=== PATIENT | male | born 1960 | race Caucasian/White ===

== ENCOUNTER 2017-01-02 15:58 | Outpatient (CLI) | payer MEDICARE, MEDICAID | END 2017-01-02 15:59 | disposition critical access hospital (66) | LOC: EMS 15:58 | PROVIDERS: ATTEND Surgery | DX: S01.01XA Laceration without foreign body of scalp, initial encounter (principal); R41.82 Altered mental status, unspecified; Y00.XXXA Assault by blunt object, initial encounter | CPT/HCPCS: A0425; A0429 ==

== ENCOUNTER 2017-01-02 16:17 | Emergency (ER) | payer MEDICARE, MEDICAID ==
[2017-01-02] MEDS ORDERED: LIDOCAINE 1%-EPI 1:100000 20 ML MDV SUBQ STA (16:21)
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
[2017-01-02] MEDS ORDERED: LIDOCAINE MPF 1%-EPI 1:200000 30 ML VIAL ONE (16:32)
--- NOTE | 2017-01-02 17:40 | XRAY Preliminary Report ---
Exam: XR Femur 2V RT IMPRESSION: Normal femur radiography. [facility] SITE ID: [id number]
--- NOTE | 2017-01-02 17:41 | CT Preliminary Report ---
Exam: CT Head W/O IMPRESSION: 1. Left sided scalp hematoma and laceration without fracture. 2. Negative for intracranial acute hemorrhage or mass effect. [facility] SITE ID: [id number]
[2017-01-02 17:42] VITALS: BP 141/73
--- NOTE | 2017-01-02 17:44 | CT Report ---
EXAM: CT HEAD EXAM DATE: 01/02/2017 05:14 PM. CLINICAL HISTORY: Head inj, etoh. COMPARISON: 07/25/2015. TECHNIQUE: Multiaxial CT images were obtained from the foramen magnum to the vertex. IV contrast: Non e. Reformats: Coronal. In accordance with CT protocol optimization, one or more of the following dose reduction techniques w ere utilized for this exam: automated exposure control, adjustment of mA and/or KV based on patient s ize, or use of iterative reconstructive technique. FINDINGS: Parenchyma: No intraparenchymal hemorrhage. No evidence of mass, midline shift, or CT findings of inf arction. Pimentel-white differentiation is distinct. Extraaxial Spaces: Normal for age. No subdural or epidural collections identified. Ventricles: Normal in size and position. Sinuses: Imaged paranasal sinuses, orbits, and mastoids show no significant abnormality. Bones: There is a left sided scalp hematoma with laceration. There are multiple skin corey. Other: None. IMPRESSION: 1. Left sided scalp hematoma and laceration without fracture. 2. Negative for intracranial acute hemorrhage or mass effect. [facility] Referring Provider Line: [phone] SITE ID: [id number]
--- NOTE | 2017-01-02 17:46 | CT Preliminary Report ---
Exam: CT Cervical Spine W/O IMPRESSION: 1. Multilevel degenerative disk and facet arthropathy, see above. 2. Normal prevertebral soft tissues. 3. No fracture. [facility] SITE ID: [id number]
--- NOTE | 2017-01-02 17:55 | CT Report ---
EXAM: CT CERVICAL SPINE WITHOUT CONTRAST DATE: 01/02/2017 05:15 p.m. HISTORY: Head injury, etoh. COMPARISONS: 07/25/2015. TECHNIQUE: Thin-section axial images were acquired of the cervical spine without contrast. Post-proce ssing: Coronal and sagittal reformats. Other: None. In accordance with CT protocol optimization, one or more of the following dose reduction techniques w ere utilized for this exam: automated exposure control, adjustment of mA and/or KV based on patient s ize, or use of iterative reconstructive technique. FINDINGS: Alignment: Normal. No scoliosis or spondylolisthesis. Bones: No fracture or bone lesion. Interspace Levels/Facets: C1-C2: Mild narrowing between the C1 arch and dens articulation. C2-C3: Unremarkable. C3-C4: Mild disk narrowing with prominent disk osteophyte complex anteriorly and posteriorly. No sign ificant foraminal stenosis. C4-C5: Mild disk narrowing. No significant foraminal stenosis. C5-C6: Moderate disk narrowing with prominent disk osteophyte complex and uncovertebral joint hypertr ophy results in mild bilateral foraminal stenosis. C6-C7: Mild disk narrowing with prominent disk osteophyte complex. Mild right foraminal stenosis. C7-T1: Unremarkable. Musculature: Normal. No fatty atrophy. Other: The paravertebral and prevertebral soft tissues are normal. The lung apices are clear. IMPRESSION: 1. Multilevel degenerative disk and facet arthropathy, see above. 2. Normal prevertebral soft tissues. 3. No fracture. [facility] Referring Provider Line: [phone] SITE ID: [id number]
--- NOTE | 2017-01-02 17:55 | XRAY Report ---
EXAM: RIGHT FEMUR RADIOGRAPHY EXAM DATE: 01/02/2017 05:33 p.m. CLINICAL HISTORY: Leg injury. COMPARISON: 01/11/2015. TECHNIQUE: 2 views. FINDINGS: Bones: Normal. No fracture or bone lesion. Joints: The visualized hip and knee joints are normal. No effusions. Soft Tissues: Normal. No soft tissue swelling. IMPRESSION: Normal femur radiography. [facility] Referring Provider Line: [phone] SITE ID: [id number]
[2017-01-02] MEDS ORDERED: HYDROcod/ACETAM 5/325 MG TABLET PO STA (17:56)
[2017-01-02] MEDS ORDERED: HYDROcod/ACETAM 5/325 MG TABLET ONE (18:02)
[2017-01-02] MEDS ORDERED: HYDROcod/ACET 5/325 Prepack 6 PO STA (18:19)
[2017-01-02] MEDS ORDERED: HYDROcod/ACET 5/325 Prepack 6 PO ONE (18:24)
== END 2017-01-02 18:32 | disposition home or self-care (01) ==
LOC: EDUNIT# → ED 16:17
DX: S01.01XA Laceration without foreign body of scalp, initial encounter (principal); S06.9X9A Unspecified intracranial injury with loss of consciousness of unspecified duration, initial encounter; Y00.XXXA Assault by blunt object, initial encounter; I10 Essential (primary) hypertension; G62.9 Polyneuropathy, unspecified; F17.200 Nicotine dependence, unspecified, uncomplicated
CPT/HCPCS: 12004; 70450; 72125; 73552; 99283; A9270

== ENCOUNTER 2018-10-07 08:38 | Day surgery (SDC) | payer MEDICARE, MEDICAID ==
[~2018-10-07 08:38] MED LIST: BUPIVACAINE 0.5% PF 10 ML VIAL ONE
[2018-10-07] MEDS ORDERED: CEFAZOLIN SODIUM IN 0.9 % NACL 2 GM/100 ML BAG IV ONE (08:39)
--- NOTE | 2018-10-07 09:02 | ANESTHESIA ---
Pre-Anesthesia VS, & Labs - Diagnosis umbilical hernia - Procedure umbilical hernia repair Vital Signs: Temp Pulse Resp BP Pulse Ox 36.6 C 78 18 174/113 H 98 10/07/18 08:48 10/07/18 08:48 10/07/18 08:48 10/07/18 08:48 10/07/18 08:48 Height 5 ft 9 in Body Mass Index 33.6 - NPO >8 hours Home Medications and Allergies Home Medications: Ambulatory Orders Metoprolol Tartrate 25 mg PO BID 10/03/18 Ibuprofen [Advil] 200 mg PO DAILY 10/07/18 Baclofen 10 mg PO BID 09/03/13 Sertraline [Zoloft] 50 mg PO DAILY 08/08/15 Metoprolol Tartrate 25 mg PO BID 10/03/18 Allergies/Adverse Reactions: Allergies Allergy/AdvReac Type Severity Reaction Status Date / Time Latex, Natural Rubber Allergy Rash Verified 10/03/18 14:10 Anes History & Medical History - Anesthetic History Anesthesia Complications: reports: No previous complications - Medical History Cardiovascular: reports: Hypertension, High cholesterol Pulmonary: reports: Sleep apnea (does not use cpap) Gastrointestinal: reports: GERD (controlled with diet) Urinary: reports: None Neuro: reports: None Musculoskeletal: reports: Osteoarthritis, Chronic back pain, Other Endocrine/Autoimmune: reports: None Blood Disorders: reports: None Skin: reports: None Smoking Status: Current every day smoker (1/2 pack per day x 30 years) Psychosocial: reports: Depression, Cannabis (Daily usage) - Surgical History General: Appendectomy Orthopedic: Spine surgery (back x3) Exam General: Alert, Oriented x3, Cooperative Dental: Poor dentition Mouth Openin Fingerbreadth Neck Mobility: Normal Mallampati classification: II Thyromental Distance: 4-6 cm Respiratory: Lungs clear, Normal breath sounds, No respiratory distress, No accessory muscle use Cardiovascular: Regular rate, Normal S1, Normal S2, No murmurs Mental/Cognitive Status: Alert/Oriented X3, Normal for patient Cognitive Status: Within normal limits Plan Anesthesia Type: General Consent for Procedure(s) Verified and Reviewed: Yes Code Status: Attempt Resuscitation ASA classification: 2-Mild systemic disease Is this case an emergency?: No
[2018-10-07] MEDS ORDERED: LACTATED RINGERS 1,000 ML IV ONE ×2 (09:26→10:49)
[2018-10-07] MEDS ORDERED: MIDAZOLAM 2 MG/2 ML VIAL ONE (09:38)
[2018-10-07] MEDS ORDERED: BUPIVACAINE 0.5% PF 30 ML VIAL INFIL ONE (09:51)
[2018-10-07] MEDS ORDERED: ONDANSETRON 4 MG/2 ML VIAL IVP PRN (10:19)
[2018-10-07] MEDS ORDERED: HYDROcod/ACETAM 5/325 MG TABLET PO PRN (10:19)
--- NOTE | 2018-10-07 10:26 | OPERATIVE REPORT ---
Operative Report - General Procedure Date: 10/07/18 Planned Procedure: Umbilical herniorrhaphy with mesh Pre-Op Diagnosis: Umbilical hernia Procedure Performed: Umbilical herniorrhaphy with mesh Post Op Diagnosis: Umbilical hernia - Procedure Note Primary Surgeon: Minh Rouse MD Anesthesia Provider: Jarett Peres CRNA Anesthesia Technique: General LMA, Local (30 mL of half percent Marcaine) IV Fluids (mL): 900 Estimated Blood Loss (mL): 5 Drain/Tube Type: Other (None.) Complications: None. - Other Other Information/Narrative: OPERATIVE DESCRIPTION/REPORT: After verbal and written informed consent was obtained detailing the risks of infection, bleeding requiring transfusion with its risks, nerve injury, and , and after I met with the patient confirming the surgery and the site of the surgery, the patient was brought to the operative suite and placed supine on the operating table. Great care was taken to avoid pressure points to prevent pressure necrosis or nerve injury. Monitoring devices were applied along with TEDs and pneumatic compressive stockings (to prevent DVT). The patient received preoperative antibiotics for surgical prophylaxis. Jarett Peres CRNA sedated and anesthetized the patient for the entire procedure. The patient was prepped and draped in the usual sterile manner. With the patient draped my initials were clearly visible. A "time in" then confirmed that the paitient was identified with 3 identifiers (name, birthdate and medical record number), the history and physical was in the chart, the signed consent confirming the procedure was in the chart, the patient was in the correct position, the aforementioned prophylactic measures were in place or given, we had the correct personnel and equipment to complete the procedure and that anesthesia, surgery and nursing were given an opportunuty to express any concerns. With the agreement of everyone in the room, we proceeded with the operation. A standard curvilinear umbilical incision was made and dissection was carried down to the hernia sac using a combination of Metzenbaum scissors and Bovie electrocautery. The sac was cleared of overlying adherent tissue, and the fascial defect was delineated. The fascia was cleared of any adherent tissue for a distance 1.5 cm from the defect. The sac was placed back into the abdomen. The defect was closed using a Ventralex ST hernia patch (Lot# [id number], ref# [id number], use by 2020-06-02). This was secured to the fascia using interrupted 0 PDS sutures superiorly and inferiorly utilizing the straps and trimming the excess strap. Laterally I placed a 0 PDS for additional support. The fascia was then closed over the mesh using 2 [id number] 0 PDS sutures incorporating the mesh. The skin, subcutaneous tissues, and the fascia were injected using half percent Marcaine for long-term anesthetic control. The patient was then given an ``innie by suturing the back of the umbilicus to the fascia using a 2-0 Vicryl. Meticulous hemostasis was obtained using Bovie electrocautery. The skin incision was approximated with a running subcuticular 4-0 Monocryl. After the prep was washed off, benzoin and steristrips were appl ied. A dressing was then applied. At this point a time out was performed that confirmed that all the counts were correct, the procedure that was performed, the blood loss, the IV fluids administered, and the patients condition. Having tolerated the procedure well, the patient was subsequently taken to recovery room in good and stable condition. Prezi disclaimer: This document was created in part using voice recognition technology. Because of the inherent limitations of the system ([employer]'s Prezi Dictate user manual states that the licensee understands that speech recognition is a statistical process and that recognition errors are inherent in the process), occasional same sounding word substitutions and grammatical errors do occur and persist despite proofreading. Please read this document for context.
[2018-10-07] MEDS: fentaNYL 100 MCG/2 ML VIAL ONE ×2 (10:39→10:47)
[2018-10-07] MEDS: HYDROmorphone 0.5 MG/0.5 ML SYRINGE IVP PRN ×2 (10:59→11:05)
[2018-10-07 11:38] VITALS: BP 152/85
[2018-10-07] MEDS ORDERED: HYDROcod/ACETAM 5/325 MG TABLET ONE (11:43)
[2018-10-08] MEDS ORDERED: KETOROLAC 30 MG/ML VIAL IVP ONE (09:56)
[2018-10-08] MEDS ORDERED: DEXAMETHASONE 4 MG/ML VIAL IVP ONE (09:56)
[2018-10-08] MEDS ORDERED: MIDAZOLAM 2 MG/2 ML VIAL IVP ONE (09:56)
[2018-10-08] MEDS ORDERED: PROPOFOL 200 MG/20 ML VIAL IVP ONE (09:56)
[2018-10-08] MEDS ORDERED: fentaNYL 100 MCG/2 ML VIAL IVP ONE (09:56)
[2018-10-08] MEDS ORDERED: ONDANSETRON 4 MG/2 ML VIAL IVP ONE (09:56)
== END 2018-10-07 08:39 | disposition home or self-care (01) ==
LOC: SDS 08:38
PROVIDERS: ATTEND Surgery
PROC: 0WUF0JZ Supplement Abdominal Wall with Synthetic Substitute, Open Approach (ICD-10-PCS; principal; 2018-10-07 09:45)
DX: K42.9 Umbilical hernia without obstruction or gangrene (principal); K92.1 Melena; I10 Essential (primary) hypertension; G47.30 Sleep apnea, unspecified; K21.9 Gastro-esophageal reflux disease without esophagitis; K44.9 Diaphragmatic hernia without obstruction or gangrene; F17.210 Nicotine dependence, cigarettes, uncomplicated; E66.9 Obesity, unspecified; F32.9 Major depressive disorder, single episode, unspecified; Z68.33 Body mass index [BMI] 33.0-33.9, adult
CPT/HCPCS: 49585; A9270; C1781; J0690; J1170; J7120

== ENCOUNTER 2018-10-20 07:14 | Outpatient (CLI) | payer MEDICARE, MEDICAID ==
[2018-10-20] MEDS ORDERED: IOVERSOL 320 100 ML VIAL IVP ONE ×2 (07:32→13:23)
[2018-10-20 07:54] LABS: CREATININE 0.7 mg/dL (0.6-1.2)
--- NOTE | 2018-10-20 09:21 | CT Report ---
Reason: PAIN AT UMBILICUS S/P UHR Procedure Date: 10/20/2018 Accession Number: [id number] / [id number] Procedure: CT - Abdomen/Pelvis W CPT Code: FULL RESULT: EXAM: CT ABDOMEN AND PELVIS EXAM DATE: 10/20/2018 08:45 AM. CLINICAL HISTORY: Umbilical pain status post umbilical hernia repair. COMPARISONS: ABDOMEN/PELVIS W/ 11/11/2014 6:09 PM. TECHNIQUE: Routine helical CT imaging was performed through the abdomen and pelvis. IV contrast: 100 mL Optiray 320. Enteric contrast: No. Reconstructions: Coronal and sagittal. In accordance with CT protocol optimization, one or more of the following dose reduction techniques were utilized for this exam: automated exposure control, adjustment of mA and/or KV based on patient size, or use of iterative reconstructive technique. FINDINGS: Lung Bases: Unremarkable. Liver: Geographically hypoattenuating in the right lobe of the liver, focal fatty infiltration, new compared to 2014. Gallbladder/Bile Ducts: Unremarkable. Spleen: Normal. Pancreas: Normal. Adrenal Glands: Normal. Kidneys: Normal. No masses or hydronephrosis. Peritoneal Cavity/Bowel: As seen on image 60 series 3 and image 41 series 6 there is ill-defined soft tissue density in the omental region immediately posterior to the repair of the umbilical wall defect with surrounding fat stranding and similar but less pronounced changes external to the abdominal wall aponeurosis, hourglass shape with waist at the level of the abdominal wall defect on axial view. There is no bowel obstruction, free fluid or free air. There is no lymphadenopathy by size criteria. Pelvic Organs: Normal. The bladder and visualized pelvic organs are within normal limits. Vasculature: Mild to moderate abdominal aortic atherosclerosis. Bones: Interval progression of degenerative changes with approximately 5 mm of retrolisthesis of L3 on L4. No aggressive osseous lesion. Other: None. IMPRESSION: Ill-defined soft tissue density and fat stranding in the configuration as described above are suggestive of incarceration of a small amount of fat through the abdominal wall defect. [facility]
== END 2018-10-20 07:15 | disposition home or self-care (01) ==
LOC: DI 07:14
PROVIDERS: ATTEND Surgery
DX: K42.9 Umbilical hernia without obstruction or gangrene (principal)
CPT/HCPCS: 36415; 74177; 82565

== ENCOUNTER 2018-10-20 13:22 | Day surgery (SDC) | payer MEDICARE, MEDICAID ==
[2018-10-20] MEDS ORDERED: LACTATED RINGERS 1,000 ML IV ONE ×2 (13:45→16:02)
--- NOTE | 2018-10-20 14:19 | ANESTHESIA ---
Pre-Anesthesia VS, & Labs <Minh Lagos Kennedi - Last Filed: 10/20/18 13:58> - NPO Last Fluid Intake: Drank 12oz of beer 1130 <JaMariposa - Last Filed: 10/20/18 15:01> - Diagnosis incarcerated umbilical hernia (DemondMinh Kolb) - Procedure umbilical hernia repair (Minh Lagos) Vital Signs: Temp Pulse Resp BP Pulse Ox 36.2 C L 90 16 132/91 H 97 10/20/18 13:46 10/20/18 13:46 10/20/18 13:46 10/20/18 13:46 10/20/18 13:46 Height 5 ft 9 in Weight (kg) 99 kg Body Mass Index 33.6 Home Medications and Allergies <Minh Lagos - Last Filed: 10/20/18 13:58> <Mariposa Peres - Last Filed: 10/20/18 15:01> Active Medications Cefazolin Sodium 3 gm/ Sodium (Chloride) 100 mls @ 200 mls/hr IV ONCE ELVA Stop: 10/20/18 16:00 Baclofen 10 mg PO BID 09/03/13 Sertraline [Zoloft] 50 mg PO DAILY 08/08/15 Metoprolol Tartrate 25 mg PO BID 10/03/18 Ibuprofen [Advil] 200 mg PO DAILY 10/07/18 Allergies/Adverse Reactions: Allergies Allergy/AdvReac Type Severity Reaction Status Date / Time Latex, Natural Rubber Allergy Rash Verified 10/03/18 14:10 Anes History & Medical History - Medical History Cardiovascular: reports: Hypertension, High cholesterol Pulmonary: reports: Sleep apnea (does not use cpap) Gastrointestinal: reports: GERD (controlled with diet) Urinary: reports: None Neuro: reports: None Musculoskeletal: reports: Osteoarthritis, Chronic back pain, Other Endocrine/Autoimmune: reports: None Blood Disorders: reports: None Skin: reports: None Smoking Status: Current every day smoker (1/2 pack per day x 30 years) - Surgical History General: Appendectomy Orthopedic: Spine surgery (back x3) <Minh Lagos - Last Filed: 10/20/18 13:58> - Anesthetic History Anesthesia Complications: reports: No previous complications <Mariposa Peres - Last Filed: 10/20/18 15:01> Exam General: Alert, Oriented x3, Cooperative, No acute distress Dental: Partials Upper, Poor dentition Mouth Openin Fingerbreadth Neck Mobility: Normal Mallampati classification: II Thyromental Distance: greater than 6 cm Respiratory: Lungs clear, Normal breath sounds, No respiratory distress, No accessory muscle use Cardiovascular: Regular rate, Normal S1, Normal S2, No murmurs Mental/Cognitive Status: Alert/Oriented X3, Normal for patient <Mariposa Peres - Last Filed: 10/20/18 15:01> Plan Anesthesia Type: General Consent for Procedure(s) Verified and Reviewed: Yes Code Status: Attempt Resuscitation ASA classification: 2-Mild systemic disease Is this case an emergency?: No <Mariposa Peres - Last Filed: 10/20/18 15:01>
[2018-10-20] MEDS ORDERED: ceFAZolin 3 GM in SODIUM CHLORIDE 0.9% 100ML 100 ML IV SCH (14:30)
[2018-10-20] MEDS ORDERED: BUPIVACAINE 0.5% PF 10 ML VIAL ONE (15:01)
[2018-10-20] MEDS ORDERED: HYDROmorphone 0.5 MG/0.5 ML SYRINGE ONE (15:05)
--- NOTE | 2018-10-20 15:29 | SURGERY HX AND PHYSICAL(T) ---
Surgical History & Physical - Chief Complaint/HPI Chief Complaint: Abdominal pain following umbilical herniorrhaphy with mesh History of Present Illness: This very pleasant 57-year-old male was seen yesterday in my office for persistent abdominal pain following an umbilical herniorrhaphy that I performed on October 07. Mesh was used and a sandwich technique was employed to place the mesh. The patient received postoperative pain medication and then when the pain did not subsist he received additional pain medication. I explained to him during yesterday's visit that having pain this far out was unusual and the answer was not to give him additional pain medication but rather to figure out t he cause of his pain. To this end I ordered a CT scan of the patient's abdomen which the patient had done today. The reading is that of an ill-defined soft tissue density in the omental region immediately posterior to the repair of the umbilical wall defect with surrounding fat stranding and a similar but less pronounced changes external to the abdominal wall aponeurosis hourglass shape with waist at the level of the abdominal wall defect and axial view. There is no bowel obstruction, no free fluid, no free air. There is no lymphadenopathy. The suggestion is of an incarceration of a small amount of fat through the abdominal wall defect. The patient was instructed of these findings and I have scheduled him for semiurgent operation to repair this. The patient was instructed to remain n.p.o. His last meal was at 1030 this morning. I explained to him that this would likely be a outpatient procedure with the patient going home thereafter. - PMH/PSH/Social Hx Does the pt have a hx of MRSA?: No Neurological History: None Eyes, Ears, Nose, Throat: None Cardiovascular: Hypertension, High cholesterol Respiratory: Sleep apnea (does not use cpap) Skin: None Endocrine/Autoimmune: None Gastrointestinal: GERD (controlled with diet) Urinary: None Musculoskeletal: Osteoarthritis, Chronic back pain, Other Blood Disorders: None Psychiatric: Depression, Anxiety, Panic attacks, Post traumatic stress disorder, Other General: Appendectomy Orthopedic: Spine surgery (back x3) Smoking Status: Current every day smoker (1/2 pack per day x 30 years) Does the pt drink ETOH?: Yes Frequency: Daily Does the pt have substance abuse?: Yes - Home Meds and Allergies Home Medications: Baclofen 10 mg PO BID 09/03/13 Sertraline [Zoloft] 50 mg PO DAILY 08/08/15 Metoprolol Tartrate 25 mg PO BID 10/03/18 Ibuprofen [Advil] 200 mg PO DAILY 10/07/18 Allergies/Adverse Reactions: Allergies Allergy/AdvReac Type Severity Reaction Status Date / Time Latex, Natural Rubber Allergy Rash Verified 10/03/18 14:10 - Review of Systems Constitutional: Other (I did not perform an extensive review of systems on this patient at this time as it is not pertinent to what were about to do.) - Vital Signs Heart Rate: 90 Blood Pressure: 132/91 Temperature: 36.2 C Respiratory Rate: 16 O2 Saturation: 97 Weight (kg): 99 kg Height: 1.75 m - Physical Exam General Appearance: positive: No acute distress Eyes Bilatera: positive: No lid inflammation, Conjunctivae nml, No scleral icterus ENT: positive: No signs of dehydration Neck: positive: Trachea midline Respiratory: positive: Chest non-tender, No respiratory distress, Breath sounds nml Cardiovascular: positive: Regular rate & rhythm Abdomen: positive: Nml bowel sounds, No distention, Other (Obese, no peritoneal findings. Minimal erythema under incision. No ecchymosis. No drainage.) Skin: positive: Color nml Extremities: positive: Non-tender, Full ROM, Nml appearance Neurologic/Psychiatric: positive: Oriented x3, Motor nml, Sensation nml, Mood/affect nml - Patient Review Patient Review: Problems were reviewed with the patient during this visit. Medications were reviewed with the patient during this visit. Allergies were reviewed this patient during this visit. Pertinent Tests Reviewed: All pertitent test for this patient were reviewed. - Assessment & Plan Assessment and Plan: Likely small incarcerated omental fat causing postoperative pain. The plan is to reoperate and see whether or not this can be fixed with a simple placement of a stitch. I explained to the patient that the mesh may need to be removed and a new piece of mesh placed. The indications, procedure, and possible complications including but not limited to bleeding with all of its risks including transfusion, infection, and were fully explained to the patient all questions were answered. Verbal and written consent was obtained. I explained the postoperatively the patient would need to "behave" so that this does not recur. He vocalized an understanding. The expectations that this procedure will be done as an outpatient procedure and he will be discharged home thereafter. I have asked him to let us know if there is any way we can make his stay here at [facility] more comfortable to please let us know. 45 minutes of [id number] time spent with the patient, the majority of which was spent in discussion, coordination of care, and completion of the requisite paperwork Cheleon disclaimer: This document was created in part using voice recognition technology. Because of the inherent limitations of the system ([employer]'s Dragon Dictate user manual states that the licensee understands that speech recognition is a statistical process and that recognition errors are inherent in the process), occasional same sounding word substitutions and grammatical errors do occur and persist despite proofreading. Please read this document for context.
[2018-10-20] MEDS ORDERED: SUGAMMADEX 200 MG/2 ML VIAL IVP ONE (17:23)
[2018-10-20] MEDS ORDERED: HYDROcod/ACETAM 5/325 MG TABLET PO PRN (17:51)
[2018-10-20] MEDS ORDERED: ONDANSETRON 4 MG/2 ML VIAL IVP PRN (17:51)
[2018-10-20] MEDS ORDERED: HYDROmorphone 0.5 MG/0.5 ML SYRINGE IVP PRN (17:51)
--- NOTE | 2018-10-20 18:00 | OPERATIVE REPORT ---
Operative Report - General Planned Procedure: Repair recurrent likely incarcerated umbilical hernia Pre-Op Diagnosis: Incarcerated incisional hernia at umbilicus Procedure Performed: Removal of mesh and primary closure of umbilical hernia Post Op Diagnosis: No evidence of incarceration, mesh already incorporated - Procedure Note Primary Surgeon: Minh Rouse MD Anesthesia Provider: Minh Lagos MD Anesthesia Technique: General ET tube, Local (30 mL of half percent Marcaine) IV Fluids (mL): 400 Estimated Blood Loss (mL): 25 Drain/Tube Type: Other (None.) Complications: None. - Other Other Information/Narrative: OPERATIVE DESCRIPTION/REPORT: After verbal and written informed consent was obtained detailing the risks of infection, bleeding requiring transfusion with its risks, nerve injury, and , and after I met with the patient confirming the surgery and the site of the surgery, the patient was brought to the operative suite and placed supine on the operating table. Great care was taken to avoid pressure points to prevent pressure necrosis or nerve injury. Monitoring devices were applied along with TEDs and pneumatic compressive stockings (to prevent DVT). The patient received preoperative antibiotics for surgical prophylaxis. [anesthesiologist] sedated and anesthetized the patient for the entire procedure. The patient was prepped and draped in the usual sterile manner. With the patient draped my initials were clearly visible. A "time in" then confirmed that the patient was identified with 3 identifiers (name, date and medical record number), the history and physical was in the chart, the signed consent confirming the procedure was in the chart, the patient was in the correct position, the aforementioned prophylactic measures were in place or given, we had the correct personnel and equipment to complete the procedure and that anesthesia, surgery and nursing were given an opportunity to express any concerns. With the agreement of everyone in the room, we proceeded with the operation. A curvilinear incision was made tracing the previous incision and dissection was carried down to the mesh using a combination of Metzenbaum scissors, scalpel, and mostly Bovie electrocautery. The mesh was excised using a combination of Metzenbaum scissors, Bovie electrocautery and mostly traction and counter- traction. The abdomen was examined as much as it could be through this relatively small incision and there was no bile, no purulence, and no blood noted. The bowel that could be seen was normal. The defect was then closed using 7 1 Prolene figure-8 sutures. The posterior aspect of the patient's umbilicus was sewn down to the fascia using a 2-0 Vicryl in order to give him a "innie." The skin, subcutaneous tissues, and fascia were then injected using 30 mL of half percent Marcaine for long-term anesthetic control. The subcutaneous tissues were copiously irrigated, and then closed using an interrupted 2-0 Vicryl. Meticulous hemostasis was obtained using Bovie electrocautery. The skin incision was approximated with a running 4-0 Monocryl. At this point a time out was performed that confirmed that all the counts were correct, the procedure that was performed, the blood loss, the IV fluids administered, and the patients condition. Having tolerated the procedure well, the patient was subsequently extubated and taken to recovery room in good and stable condition. Dragon disclaimer: This document was created in part using voice recognition technology. Because of the inherent limitations of the system ([employer]'s Dragon Dictate user manual states that the licensee understands that speech recognition is a statistical process and that recognition errors are inherent in the process), occasional same sounding word substitutions and grammatical errors do occur and persist despite proofreading. Please read this document for context.
[2018-10-20] MEDS ORDERED: PROPOFOL 200 MG/20 ML VIAL IVP ONE (18:02)
[2018-10-20] MEDS ORDERED: fentaNYL 100 MCG/2 ML VIAL IVP ONE (18:02)
[2018-10-20] MEDS ORDERED: ROCURONIUM 50 MG/5 ML VIAL IVP ONE (18:02)
[2018-10-20] MEDS ORDERED: KETOROLAC 30 MG/ML VIAL IVP ONE (18:02)
[2018-10-20] MEDS ORDERED: ACETAMINOPHEN 1,000 MG/100 ML 100 ML IV ONE (18:02)
[2018-10-20] MEDS ORDERED: LIDOCAINE-MPF 2% 5 ML VIAL IM ONE (18:02)
[2018-10-20] MEDS ORDERED: ONDANSETRON 4 MG/2 ML VIAL IVP ONE (18:02)
[2018-10-20] MEDS: HYDROmorphone 1 MG/ML CARPUJECT ONE ×2 (18:03→18:08)
[2018-10-20] MEDS ORDERED: MEPERIDINE 50 MG/ML VIAL ONE (18:19)
[2018-10-20] MEDS: MIDAZOLAM 2 MG/2 ML VIAL ONE ×2 (18:20→18:30)
[2018-10-20 19:39] VITALS: BP 138/93
== END 2018-10-20 19:45 | disposition home or self-care (01) ==
LOC: SDS 13:22 → MS2 18:47 → SDS 19:45
PROVIDERS: ATTEND Surgery
PROC: 0WQF0ZZ Repair Abdominal Wall, Open Approach (ICD-10-PCS; principal; 2018-10-20 14:30)
DX: K42.9 Umbilical hernia without obstruction or gangrene (principal); G47.30 Sleep apnea, unspecified; K21.9 Gastro-esophageal reflux disease without esophagitis; F17.210 Nicotine dependence, cigarettes, uncomplicated
CPT/HCPCS: 36415; 49585; 74177; 82565; J0131; J1170; J7120; Q9967

== ENCOUNTER 2018-11-02 | Emergency (ER) | payer MEDICARE, MEDICAID | END 2018-11-02 14:25 | disposition home or self-care (01) | DX: L76.34 Postprocedural seroma of skin and subcutaneous tissue following other procedure (principal); I10 Essential (primary) hypertension; F17.200 Nicotine dependence, unspecified, uncomplicated | CPT/HCPCS: 36415; 51798; 74177; 80053; 81003; 83690; 85025; 96361; 96374; 96376; 99284; A9270; J1170; Q9967; 81001; 87086 ==

== ENCOUNTER 2019-02-05 15:00 | Outpatient (CLI) | payer MEDICARE, MEDICAID | END 2019-02-05 15:01 | disposition critical access hospital (66) | LOC: EMS 15:00 | PROVIDERS: ATTEND Surgery | DX: R09.2 Respiratory arrest (principal) ==

== ENCOUNTER 2019-02-05 15:19 | Observation (INO) | payer MEDICARE, MEDICAID ==
[2019-02-05] MEDS ORDERED: SODIUM CHLORIDE 0.9% 1,000 ML IV ONE (15:25)
[2019-02-05] MEDS ORDERED: PROPOFOL 1000 MG/100 ML 100 ML IV STA (15:25)
--- NOTE | 2019-02-05 15:31 | ED Physician Documentation ---
PD HPI ALTERED MENTAL STATUS - Stated complaint Stated Complaint: INTUBATED - History obtained from History obtained from: Patient, EMS - History of Present Illness Timing - onset: Today (This is a 58-year-old gentleman who presents by ambulance for respiratory failure. The history is from EMS and the . Per the he has chronic pain, both headaches and back pain. For this his primary care physician refuses to prescribe him pain medication. Because of that he bought some sort of pain pill on the street today for $30. We do not know what it was, then he subsequently drink some alcohol, "because of the football game." Per the . Subsequent to that he collapsed in the yard, thought to be pulseless by bystanders and CPR was begun. When paramedics arrived he was unresponsive with a sat of 60%. He was intubated for airway protection and received etomidate, succinylcholine, and Vecuronium.) Review of Systems Unable to obtain: Intubated PD PAST MEDICAL HISTORY - Past Medical History Cardiovascular: Hypertension, High cholesterol Respiratory: Sleep apnea (does not use cpap) Neuro: None Endocrine/Autoimmune: None GI: GERD (controlled with diet) : None HEENT: None Psych: Depression, Anxiety, Panic attacks, Post traumatic stress disorder, Other Musculoskeletal: Osteoarthritis, Chronic back pain, Other Derm: None - Past Surgical History Past Surgical History: Yes General: Appendectomy Ortho: Spine surgery (back x3) - Present Medications Home Medications: Ambulatory Orders Medication Instructions Recorded Confirmed Baclofen 10 mg PO BID 09/03/13 10/07/18 Sertraline [Zoloft] 50 mg PO DAILY 08/08/15 10/07/18 Metoprolol Tartrate 25 mg PO BID 10/03/18 10/07/18 Docusate Sodium 250Mg Capsule 250 mg PO DAILY #10 capsule 10/07/18 [Colace 250Mg Capsule] HYDROcod/ACETAM 5/325 [Aurora 5/325] 1 each PO Q4H #20 tablet 10/07/18 Ibuprofen [Advil] 200 mg PO DAILY 10/07/18 10/07/18 Docusate Sodium 250Mg Capsule 250 mg PO DAILY #10 capsule 10/20/18 [Colace 250Mg Capsule] HYDROcod/ACETAM 5/325 [Aurora 5/325] 1 each PO Q4H #20 tablet 10/20/18 Docusate Sodium [Dss] 250 mg PO DAILY #15 capsule 11/02/18 Doxycycline Hyclate 100 mg PO BID #20 capsule 11/02/18 Naproxen 500 mg PO BID #20 tablet 11/02/18 Oxycodone HCl/Acetaminophen 1 each PO Q6H PRN #15 tablet 11/02/18 [Oxycodon-Acetaminophen 7.5-325] - Allergies Allergies/Adverse Reactions: Allergies Allergy/AdvReac Type Severity Reaction Status Date / Time Latex, Natural Rubber Allergy Rash Verified 11/02/18 09:58 - Social History Does the pt smoke?: Yes Smoking Status: Current every day smoker (1/2 pack per day x 30 years) Does the pt drink ETOH?: Yes Does the pt have substance abuse?: Yes - Immunizations Immunizations are current?: Yes Immunizations: TDAP current <10years - POLST Patient has POLST: No PD ED PE NORMAL - Vitals Vital signs reviewed: Yes - General General: Other (He is unresponsive, smells of alcohol, has pinpoint pupils and is intubated.) - HEENT HEENT: Other ([place] nonreactive pupils) - Neck Neck: Supple, no meningeal sign, No bony TTP - Cardiac Cardiac: RRR, No murmur - Respiratory Respiratory: No respiratory distress, Clear bilaterally - Abdomen Abdomen: Non tender - Neuro Eye Opening: None Motor: None Verbal: None GCS Score: 3 Results - Vitals Vitals: Vital Signs - 24 hr 02/05/19 02/05/19 02/05/19 15:17 15:34 15:43 Temperature 34.4 C L Heart Rate 109 H 87 99 Respiratory 18 16 24 Rate Blood Pressure 175/106 H 175/106 H O2 Saturation 100 100 99 02/05/19 02/05/19 15:58 16:51 Temperature Heart Rate 80 77 Respiratory 19 18 Rate Blood Pressure 215/110 H 227/119 H O2 Saturation 98 100 Oxygen O2 Source Mechanical ventilator - EKG (time done) 1623 Rate: Rate (enter#) (109) Rhythm: NSR [place]: LAD Intervals: Wide QRS (ICD with LAD) Ischemia: Non specific changes. No: ST elevation c/w ischemia Computer interpretation: Agree with computer - Labs Labs: Laboratory Tests 02/05/19 02/05/19 02/05/19 15:35 15:40 15:40 WBC 9.4 RBC 5.10 Hgb 15.4 Hct 46.7 MCV 91.6 MCH 30.2 MCHC 33.0 RDW 12.5 Plt Count 252 MPV 9.3 Neut # (Auto) 4.8 Lymph # (Auto) 3.6 H [place] # (Auto) 0.5 Eos # (Auto) 0.2 Baso # (Auto) 0.1 Absolute Nucleated RBC 0.00 Nucleated RBC % 0.0 PT 11.1 INR 1.0 Bld Gas Analysis Time Sample Site ABG pH ABG pCO2 ABG pO2 ABG HCO3 ABG Total CO2 ABG O2 Saturation ABG Base Excess Elijah Test VBG pH VBG pCO2 VBG pO2 VBG HCO3 VBG Total CO2 VBG O2 Saturation VBG Base Excess Respiration Rate O2 Delivery Device Vent Mode FiO2 Tidal Volume PEEP Pressure Support Vent Sodium Potassium Chloride Carbon Dioxide Anion Gap BUN Creatinine Estimated GFR (MDRD) Glucose Lactic Acid 4.8 H* Calcium Magnesium Total Bilirubin AST ALT Alkaline Phosphatase Total Creatine Kinase Total Protein Albumin Globulin Albumin/Globulin Ratio Lipase TSH Urine Color Urine Clarity Urine pH Ur Specific [place] Urine Protein Urine Glucose (UA) Urine Ketones Urine Occult Blood Urine Nitrite Urine Bilirubin Urine Urobilinogen Ur Leukocyte Esterase Urine RBC Urine WBC Ur Squamous Epith Cells Amorphous Sediment Urine Bacteria Urine Casts Ur Microscopic Review Urine Culture Comments Salicylates Urine Opiates Screen Ur Oxycodone Screen Urine Methadone Screen Ur Propoxyphene Screen Acetaminophen Ur Barbiturates Screen Ur Tricyclics Screen Ur Phencyclidine Scrn Ur Amphetamine Screen U Methamphetamines Scrn U Benzodiazepines Scrn Urine Cocaine Screen U Cannabinoids Screen Ethyl Alcohol 02/05/19 02/05/19 02/05/19 15:40 15:40 15:40 WBC RBC Hgb Hct MCV MCH MCHC RDW Plt Count MPV Neut # (Auto) Lymph # (Auto) [place] # (Auto) Eos # (Auto) Baso # (Auto) Absolute Nucleated RBC Nucleated RBC % PT INR Bld Gas Analysis Time Sample Site ABG pH ABG pCO2 ABG pO2 ABG HCO3 ABG Total CO2 ABG O2 Saturation ABG Base Excess Elijah Test VBG pH 7.182 L VBG pCO2 50.2 VBG pO2 102.1 H VBG HCO3 18.4 L VBG Total CO2 19.9 L VBG O2 Saturation 96.4 H VBG Base Excess -10.2 L Respiration Rate O2 Delivery Device Vent Mode FiO2 Tidal Volume PEEP Pressure Support Vent Sodium 138 Potassium 3.6 Chloride 105 Carbon Dioxide 19 L Anion Gap 14.0 H BUN 8 Creatinine 1.1 Estimated GFR (MDRD) 69 L Glucose 180 H Lactic Acid Calcium 8.5 Magnesium 2.3 Total Bilirubin 0.4 AST 55 H ALT 65 H Alkaline Phosphatase 96 Total Creatine Kinase 108 Total Protein 6.6 L Albumin 3.7 Globulin 2.9 Albumin/Globulin Ratio 1.3 Lipase 38 TSH 11.73 H Urine Color Urine Clarity Urine pH Ur Specific [place] Urine Protein Urine Glucose (UA) Urine Ketones Urine Occult Blood Urine Nitrite Urine Bilirubin Urine Urobilinogen Ur Leukocyte Esterase Urine RBC Urine WBC Ur Squamous Epith Cells Amorphous Sediment Urine Bacteria Urine Casts Ur Microscopic Review Urine Culture Comments Salicylates < 6.0 Urine Opiates Screen Ur Oxycodone Screen Urine Methadone Screen Ur Propoxyphene Screen Acetaminophen < 10 L Ur Barbiturates Screen Ur Tricyclics Screen Ur Phencyclidine Scrn Ur Amphetamine Screen U Methamphetamines Scrn U Benzodiazepines Scrn Urine Cocaine Screen U Cannabinoids Screen Ethyl Alcohol 51.3 02/05/19 02/05/19 15:40 16:12 WBC RBC Hgb Hct MCV MCH MCHC RDW Plt Count MPV Neut # (Auto) Lymph # (Auto) [place] # (Auto) Eos # (Auto) Baso # (Auto) Absolute Nucleated RBC Nucleated RBC % PT INR Bld Gas Analysis Time 1614 Sample Site LEFT RADIAL ABG pH 7.18 L* ABG pCO2 53 H ABG pO2 64 L ABG HCO3 19.2 L ABG Total CO2 20.8 L ABG O2 Saturation 88 L ABG Base Excess -9.6 L Elijah Test POSITIVE VBG pH VBG pCO2 VBG pO2 VBG HCO3 VBG Total CO2 VBG O2 Saturation VBG Base Excess Respiration Rate 16 O2 Delivery Device VENTILATOR Vent Mode SIMV FiO2 50.00 Tidal Volume 600 PEEP 5 Pressure Support Vent 10 Sodium Potassium Chloride Carbon Dioxide Anion Gap BUN Creatinine Estimated GFR (MDRD) Glucose Lactic Acid Calcium Magnesium Total Bilirubin AST ALT Alkaline Phosphatase Total Creatine Kinase Total Protein Albumin Globulin Albumin/Globulin Ratio Lipase TSH Urine Color LIGHT YELLOW Urine Clarity HAZY Urine pH 5.5 Ur Specific [place] 1.025 Urine Protein 100 H Urine Glucose (UA) 100 H Urine Ketones NEGATIVE Urine Occult Blood SMALL H Urine Nitrite NEGATIVE Urine Bilirubin NEGATIVE Urine Urobilinogen 0.2 (NORMAL) Ur Leukocyte Esterase NEGATIVE Urine RBC 0-5 Urine WBC 0-3 Ur Squamous Epith Cells NONE SEEN Amorphous Sediment Moderate Urine Bacteria Moderate H Urine Casts 3-5 Hyaline Casts Ur Microscopic Review INDICATED Urine Culture Comments INDICATED Salicylates Urine Opiates Screen NEGATIVE Ur Oxycodone Screen NEGATIVE Urine Methadone Screen NEGATIVE Ur Propoxyphene Screen NEGATIVE Acetaminophen Ur Barbiturates Screen NEGATIVE Ur Tricyclics Screen NEGATIVE Ur Phencyclidine Scrn NEGATIVE Ur Amphetamine Screen NEGATIVE U Methamphetamines Scrn NEGATIVE U Benzodiazepines Scrn NEGATIVE Urine Cocaine Screen NEGATIVE U Cannabinoids Screen POSITIVE H Ethyl Alcohol Procedures - Central Line Central Line Preparation: Unable to obtain consent ( not avilable then), Time out completed, Ultrasound used, Sterile prep and drape Central line location: Right IJ Central line type: Triple lumen (7F) Central line aftercare: Chlorhexidine disc placed, Secured, Placement confirmed, No pneumothorax, Bundle checklist complete PD MEDICAL DECISION MAKING - ED course ED course: 58-year-old gentleman presents after CPR after an apparent drug overdose. He is intubated and had been given vecuronium and etomidate in the field. Initially unresponsive. Poor IV access, only in IO in place on arrival and this was replaced with a central line. Vent was titrated to given blood gases. Noted at 1650 to be awake and following commands. Note that the propofol I had ordered at 1525 was never started, due to some sort of computer mixup but did not show up in the MAR for the nurse. That said the patient was following commands and spontaneous breathing trial was done. However he failed a spontaneous breathing trial, had a significant oxygen and support requirement so the propofol was begun and I spoke with the hospitalist for admission at 4:56 PM. - Critical Care Time(min): 45 Time Includes: Direct patient care, Review records, Reassess patient, Document care, Coordinate care, Medical consult, Family consult for tx dec Data interpretation: Pulse ox Procedures included in critical care time: Peripheral IV Procedures excluded from critical care time: Central IV, EKG Departure - Departure Disposition: 66 CAH DC/Xfer Clinical Impression: Respiratory failure Qualifiers: Chronicity: acute Respiratory failure complication: hypoxia and hypercapnia Qualified Code(s): J96.01 - Acute respiratory failure with hypoxia Drug overdose Qualifiers: Encounter type: initial encounter Injury intent: undetermined intent Qualified Code(s): T50.904A - Poisoning by unspecified drugs, medicaments and biological substances, undetermined, initial encounter Condition: Critical
[2019-02-05 15:45] LABS: MUDS CUTOFF CONCENTRATIONS CUTOFF CONC BELOW:
[2019-02-05 15:47] LABS: BILIRUBIN,URINE NEGATIVE (NEGATIVE); GLUCOSE, URINE (UA) 100 mg/dL (NEGATIVE); KETONES,URINE (UA) NEGATIVE (NEGATIVE); LEUKOCYTE ESTERASE, URINE NEGATIVE (NEGATIVE); NITRITE,URINE NEGATIVE (NEGATIVE); OCCULT BLOOD,URINE SMALL (NEGATIVE); PH,URINE 5.5 PH (5.0-7.5); PROTEIN,URINE 100 mg/dL (NEGATIVE); UROBILINOGEN,URINE 0.2 (NORMAL) E.U./dL (NORMAL); VBG BASE EXCESS -10.2 mmol/L (-2 - +2); VBG PCO2 50.2 mmHg (41-51); VBG PH 7.182 (7.31-7.41); VBG PO2 102.1 mmHg (25-47); VBG TOTAL CO2 19.9 mmol/L (24-29)
[2019-02-05 15:51] LABS: BASOPHILS # (AUTO) 0.1 10^3/uL (0.0-0.1); BASOPHILS % (AUTO) 0.7 %; EOSINOPHILS # (AUTO) 0.2 10^3/uL (0.0-0.7); EOSINOPHILS % (AUTO) 2.3 %; HGB - HEMOGLOBIN 15.4 g/dL (14.0-18.0); LYMPHOCYTES # (AUTO) 3.6 10^3/uL (1.5-3.5); LYMPHOCYTES % (AUTO) 38.3 %; MEAN CORPUSCULAR HEMOGLOBIN 30.2 pg (27.0-31.0); MEAN CORPUSCULAR VOLUME 91.6 fL (80.0-94.0); MEAN PLATELET VOLUME 9.3 fL (7.4-11.4); MONOCYTES # (AUTO) 0.5 10^3/uL (0.0-1.0); MONOCYTES % (AUTO) 5.3 %; NEUTROPHILS # (AUTO) 4.8 10^3/uL (1.5-6.6); NEUTROPHILS % (AUTO) 51.1 %; PLT - PLATELET COUNT 252 10^3/uL (130-450); RED CELL DISTRIBUTION WIDTH 12.5 % (12.0-15.0); WHITE BLOOD COUNT 9.4 x10^3/uL (4.8-10.8)
[2019-02-05 15:54] LABS: CLARITY,URINE HAZY (CLEAR); PT - PROTHROMBIN TIME 11.1 secs (9.9-12.6)
[2019-02-05] MEDS ORDERED: LACTATED RINGERS 1,000 ML IV STA (16:00)
[2019-02-05 16:04] LABS: BACTERIA,URINE Moderate /HPF (None Seen); RBC,URINE 0-5 /HPF (0-5); SQUAMOUS EPITHELIAL CELL,UR NONE SEEN (<= Few)
[2019-02-05 16:05] LABS: AMORPHOUS SEDIMENT,UR Moderate /LPF; AMPHETAMINE SCREEN,URINE NEGATIVE (NEGATIVE); BENZODIAZEPINES SCREEN, URINE NEGATIVE (NEGATIVE); CASTS, URINE 3-5 Hyaline Casts /LPF; COCAINE SCREEN URINE NEGATIVE (NEGATIVE); METHADONE SCREEN, URINE NEGATIVE (NEGATIVE); METHAMPHETAMINES SCREEN, URINE NEGATIVE (NEGATIVE); OPIATE SCREEN, URINE NEGATIVE (NEGATIVE); OXYCODONE SCREEN, URINE NEGATIVE (NEGATIVE); PROPOXYPHENE SCREEN, URINE NEGATIVE (NEGATIVE); TRICYCLIC ANTIDEPRESSANT,URINE NEGATIVE (NEGATIVE)
[2019-02-05 16:07] LABS: ACETAMINOPHEN < 10 ug/mL (10-30); ALBUMIN 3.7 g/dL (3.2-5.5); ALBUMIN/GLOBULIN RATIO 1.3 (1.0-2.2); ALKALINE PHOSPHATASE 96 IU/L (42-121); ALT ALANINE AMINOTRANSFERASE 65 IU/L (10-60); AST ASPARTATE AMINOTRANSFERASE 55 IU/L (10-42); BILIRUBIN,TOTAL 0.4 mg/dL (0.2-1.0); BUN - BLOOD UREA NITROGEN 8 mg/dL (6-20); CALCIUM 8.5 mg/dL (8.5-10.3); CARBON DIOXIDE - CO2 19 mmol/L (21-32); CHLORIDE 105 mmol/L (101-111); CK- CREATINE KINASE 108 IU/L (22-269); CREATININE 1.1 mg/dL (0.6-1.2); GFR - MDRD 69 (>89); GLUCOSE 180 mg/dL (70-100); LIPASE 38 U/L (22-51); MAGNESIUM 2.3 mg/dL (1.7-2.8); SALICYLATE < 6.0 mg/dL; SODIUM 138 mmol/L (135-145); TOTAL PROTEIN 6.6 g/dL (6.7-8.2)
--- NOTE | 2019-02-05 16:11 | XRAY Report ---
Reason: resp failure Procedure Date: 02/05/2019 Accession Number: [id number] / [id number] Procedure: XR - Chest 1 View X-Ray CPT Code: 57340 Final Report FULL RESULT: EXAM: CHEST RADIOGRAPHY EXAM DATE: 02/05/2019 03:36 PM. CLINICAL HISTORY: Respiratory failure. COMPARISON: CHEST 2 VIEW PA/LAT 10/11/2015 12:08 PM. TECHNIQUE: 1 view. FINDINGS: Lungs/Pleura: Mild central congestion seen. No theresa consolidation noted. There is hypoventilation. Mediastinum: Within exam limitations, the cardiomediastinal contour is normal. Other: Patient is intubated, with ET tube tip approximately 4.5 cm above the darrick. IMPRESSION: Mild central congestion, with ET tube tip 4.5 cm above the darrick. RADIA
[2019-02-05 16:17] LABS: ABG BASE EXCESS -9.6 mmol/L (-2.0-3.0); ABG HCO3 19.2 mmol/L (22.0-26.0); ABG OXYGEN SATURATION 88 % (94-98); ABG PCO2 53 mmHg (34-45); ABG PO2 64 mmHg (80-100); ABG TCO2 20.8 MMOL/L (21.0-29.0)
[2019-02-05 16:20] LABS: ABG PH 7.18 (7.35-7.45); ALLEN TEST POSITIVE
[2019-02-05] MEDS ORDERED: IOVERSOL 320 100 ML VIAL IVP ONE ×2 (16:24→16:47)
--- NOTE | 2019-02-05 16:34 | XRAY Report ---
Reason: RIJ central line Procedure Date: 02/05/2019 Accession Number: [id number] / [id number] Procedure: XR - Chest for Line Placement CPT Code: Final Report FULL RESULT: EXAM: CHEST RADIOGRAPHY EXAM DATE: 02/05/2019 04:00 PM. CLINICAL HISTORY: RIJ central line placement. COMPARISON: CHEST 1 VIEW 02/05/2019 3:18 PM. TECHNIQUE: 1 view. FINDINGS: Lines/Tubes: ET tube about 5.5 cm from the darrick. Right IJ line to the low SVC. Lungs/Pleura: Stable linear opacity at the medial right base, otherwise no focal opacities evident. No pleural effusion. No pneumothorax. Mediastinum: Within exam limitations, the cardiomediastinal contour is normal. Other: No fractures identified. IMPRESSION: Right IJ line to the low SVC with no visible pneumothorax or other interval change. RADIA
[2019-02-05] MEDS ORDERED: ONDANSETRON 4 MG/2 ML VIAL IVP PRN (17:00)
[2019-02-05] MEDS ORDERED: ONDANSETRON ODT 4 MG TABLET TL PRN (17:00)
--- NOTE | 2019-02-05 17:06 | CT Report ---
Reason: altered, poss trauma Procedure Date: 02/05/2019 Accession Number: [id number] / [id number] Procedure: CT - HEAD WO CPT Code: Final Report FULL RESULT: EXAM: CT HEAD EXAM DATE: 02/05/2019 04:41 PM. CLINICAL HISTORY: Altered mental status. Possible trauma. COMPARISON: HEAD W/O 01/02/2017 5:07 PM. TECHNIQUE: Multiaxial CT images were obtained from the foramen magnum to the vertex. Reformats: Sagittal and coronal. IV contrast: None. In accordance with CT protocol optimization, one or more of the following dose reduction techniques were utilized for this exam: automated exposure control, adjustment of mA and/or KV based on patient size, or use of iterative reconstructive technique. FINDINGS: Parenchyma: No intraparenchymal hemorrhage. No evidence of mass, midline shift, or CT findings of infarction. Pimentel-white differentiation is distinct. Extraaxial Spaces: Normal for age. No subdural or epidural collections identified. Ventricles: Normal in size and position. Sinuses and Orbits: Imaged paranasal sinuses, orbits, and mastoids show no significant abnormality. Bones: No evidence of fracture or calvarial defect. Other: None. IMPRESSION: Normal head CT. RADIA
--- NOTE | 2019-02-05 17:11 | CT Report ---
Reason: altered, poss trauma Procedure Date: 02/05/2019 Accession Number: [id number] / [id number] Procedure: CT - CERVICAL SPINE WO CPT Code: Final Report FULL RESULT: EXAM: CT CERVICAL SPINE WITHOUT CONTRAST DATE: 02/05/2019 04:41 PM. HISTORY: Altered mental status, possible trauma. Neck pain. COMPARISONS: CERVICAL SPINE W/O 01/02/2017 5:10 PM. TECHNIQUE: Thin-section axial images were acquired of the cervical spine without contrast. Post-processing: Coronal and sagittal reformats. Other: None. In accordance with CT protocol optimization, one or more of the following dose reduction techniques were utilized for this exam: automated exposure control, adjustment of mA and/or KV based on patient size, or use of iterative reconstructive technique. FINDINGS: Alignment: No scoliosis or spondylolisthesis. Bones: No fracture or bone lesion. Interspace Levels/Facets: Moderate multilevel osteoarthritic changes present. Musculature: Normal. No fatty atrophy. Other: The paravertebral and prevertebral soft tissues are unremarkable. The lung apices are clear. Patient is intubated. IMPRESSION: 1. Moderate multilevel osteoarthritic changes present without acute fracture. RADIA
[2019-02-05] MEDS: PROPOFOL 1000 MG/100 ML 100 ML IV SCH ×3 (17:15→22:54)
--- NOTE | 2019-02-05 17:15 | CT Report ---
Reason: aorta protocol, wide mediastinum Procedure Date: 02/05/2019 Accession Number: [id number] / [id number] Procedure: CT - ANGIO CHEST W/WO CPT Code: Final Report FULL RESULT: EXAM: CT ANGIOGRAM CHEST EXAM DATE: 02/05/2019 04:42 PM. CLINICAL HISTORY: Trauma, confusion. COMPARISON: CHEST 1 VIEW 02/05/2019 3:18 PM. TECHNIQUE: Routine helical imaging was performed through the chest in the pulmonary arterial phase. IV Contrast: OPTI 320 80ML. Reconstructions: Coronal 3-D MIP reconstructions.Sagittal and coronal. In accordance with CT protocol optimization, one or more of the following dose reduction techniques were utilized for this exam: automated exposure control, adjustment of mA and/or KV based on patient size, or use of iterative reconstructive technique. FINDINGS: Vascular: Noncontrast imaging demonstrates no evidence of acute intramural hematoma. There is no evidence of aortic dissection or aneurysm. Lungs/Pleura: There is atelectasis within the lung bases. There is a small right pleural effusion. No evidence of pulmonary contusion. No pneumothorax. Mediastinum: Normal. No cardiac enlargement or adenopathy. Upper Abdomen: There is hepatic steatosis. The visualized portions of the upper abdominal organs demonstrate no acute abnormalities. Other: None. IMPRESSION: 1. There is no evidence of aortic dissection or aneurysm. 2. There is a small right pleural effusion. 3. There is bibasilar atelectasis. 4. There is hepatic steatosis. RADIA
[2019-02-05] MEDS ORDERED: MIDAZOLAM 2 MG/2 ML VIAL IVP ONE (17:35)
[2019-02-05] MEDS ORDERED: MIDAZOLAM 2 MG/2 ML VIAL ONE (17:47)
[2019-02-05] MEDS ORDERED: LABETALOL 20 MG/4 ML SYRINGE IVP PRN (18:28)
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
[2019-02-05 18:47] LABS: ABG BASE EXCESS -4.9 mmol/L (-2.0-3.0); ABG HCO3 21.3 mmol/L (22.0-26.0); ABG OXYGEN SATURATION 94 % (94-98); ABG PCO2 44 mmHg (34-45); ABG PH 7.31 (7.35-7.45); ABG PO2 76 mmHg (80-100); ABG TCO2 22.7 MMOL/L (21.0-29.0); ALLEN TEST POSITIVE
[2019-02-05] MEDS: cefTRIAXone 1 GM in SODIUM CHLORIDE 0.9% MINIBAG 100 ML IV SCH (19:27)
[2019-02-05] MEDS: MULTIVITAMIN 10 ML, THIAMINE INJ 100 MG, FOLIC ACID INJ 1 MG in D5.45NS W/20 MEQ KCL 1,... IV SCH (19:28)
[2019-02-05] MEDS: SODIUM CHLORIDE FLUSH 0.9% 10 ML SYRINGE IVP SCH (20:16)
[2019-02-05] MEDS: CHLORHEXIDINE GLUCONATE 15 ML UDC PO SCH (20:45)
[2019-02-05] MEDS ORDERED: ACETAMINOPHEN 1,000 MG/100 ML 100 ML IV PRN (23:01)
[2019-02-05] MEDS: MIDAZOLAM 2 MG/2 ML VIAL IVP PRN (23:35)
[2019-02-05] MEDS: KETOROLAC 15 MG/ML VIAL IVP PRN (23:35)
[2019-02-06] MEDS: SODIUM CHLORIDE FLUSH 0.9% 10 ML SYRINGE IVP SCH ×2 (00:53→08:18)
[2019-02-06] MEDS: PROPOFOL 1000 MG/100 ML 100 ML IV SCH ×3 (01:47→07:12)
[2019-02-06] MEDS ORDERED: SODIUM CHLORIDE 0.9% 1,000 ML IV SCH (04:00)
[2019-02-06] MEDS: MIDAZOLAM 2 MG/2 ML VIAL IVP PRN (04:42)
[2019-02-06] MEDS: SODIUM CHLORIDE FLUSH 0.9% 10 ML SYRINGE IVP PRN ×2 (04:55→05:56)
[2019-02-06 05:09] LABS: BASOPHILS % (AUTO) 0.6 %; EOSINOPHILS # (AUTO) 0.2 10^3/uL (0.0-0.7); EOSINOPHILS % (AUTO) 2.7 %; HGB - HEMOGLOBIN 13.6 g/dL (14.0-18.0); LYMPHOCYTES # (AUTO) 1.8 10^3/uL (1.5-3.5); MEAN CORPUSCULAR HEMOGLOBIN 30.4 pg (27.0-31.0); MEAN CORPUSCULAR HGB CONC 33.3 g/dL (32.0-36.0); MEAN CORPUSCULAR VOLUME 91.1 fL (80.0-94.0); MEAN PLATELET VOLUME 9.6 fL (7.4-11.4); MONOCYTES # (AUTO) 0.4 10^3/uL (0.0-1.0); MONOCYTES % (AUTO) 5.7 %; NEUTROPHILS # (AUTO) 4.5 10^3/uL (1.5-6.6); NEUTROPHILS % (AUTO) 64.4 %; PLT - PLATELET COUNT 178 10^3/uL (130-450); RED BLOOD COUNT 4.48 10^6/uL (4.70-6.10); RED CELL DISTRIBUTION WIDTH 12.8 % (12.0-15.0)
[2019-02-06 05:21] LABS: ALBUMIN 3.3 g/dL (3.2-5.5); ALBUMIN/GLOBULIN RATIO 1.2 (1.0-2.2); BILIRUBIN,TOTAL 0.4 mg/dL (0.2-1.0); CALCIUM 8.3 mg/dL (8.5-10.3)
[2019-02-06] MEDS ORDERED: PANTOPRAZOLE 40 MG VIAL IVP SCH (07:00)
[2019-02-06] MEDS: cefTRIAXone 1 GM in SODIUM CHLORIDE 0.9% MINIBAG 100 ML IV SCH (08:16)
[2019-02-06] MEDS: CHLORHEXIDINE GLUCONATE 15 ML UDC PO SCH (08:28)
[2019-02-06 08:30] LABS: ABG PCO2 48 mmHg (34-45); ABG PH 7.37 (7.35-7.45); ABG PO2 70 mmHg (80-100)
[2019-02-06 08:31] LABS: ABG BASE EXCESS 1.1 mmol/L (-2.0-3.0); ABG HCO3 27.2 mmol/L (22.0-26.0); ABG OXYGEN SATURATION 93 % (94-98); ABG TCO2 28.6 MMOL/L (21.0-29.0); ALLEN TEST POSITIVE
[2019-02-06] MEDS: MULTIVITAMIN 10 ML, THIAMINE INJ 100 MG, FOLIC ACID INJ 1 MG in D5.45NS W/20 MEQ KCL 1,... IV SCH (08:33)
[2019-02-06] MEDS ORDERED: SODIUM CHLORIDE FLUSH 0.9% 10 ML SYRINGE ONE (08:52)
[2019-02-06] MEDS ORDERED: MULTIVITAMIN 10 ML, THIAMINE INJ 100 MG, FOLIC ACID INJ 1 MG in D5.45NS W/20 MEQ KCL 1,... IV SCH (09:00)
[2019-02-06] MEDS ORDERED: METOPROLOL TARTRATE 25 MG TABLET PO SCH (10:00)
[2019-02-06] MEDS ORDERED: TAMSULOSIN 0.4 MG CAPSULE PO SCH (10:00)
[2019-02-06] MEDS ORDERED: BACLOFEN 10 MG TABLET PO SCH (10:00)
[2019-02-06] MEDS ORDERED: SERTRALINE 25 MG TABLET PO SCH (10:00)
[2019-02-06] MEDS: PHENAZOPYRIDINE 100 MG TABLET PO SCH ×2 (10:13→15:21)
[2019-02-06] MEDS: KETOROLAC 15 MG/ML VIAL IVP PRN (12:40)
--- NOTE | 2019-02-06 14:30 | Discharge Plan ---
Discharge Plan Problem Reviewed?: Yes Disposition: Home, Self Care Condition: Good Prescriptions: Levofloxacin [Levaquin] 500 mg PO DAILY #5 tablet Diet: Regular Activity Restrictions: Activity as Tolerated Shower Restrictions: No Driving Restrictions: No Health Concerns: You were brought into the emergency room by EMS because you were found down in your backyard. You had taken a substance that was a pill that you have bought illegally to help you with your chronic pain syndrome. You had also been drinking watching the football game. We think that you may have had an accidental opiate overdose. Specifically fentanyl. This causes you to stop breathing. You received CPR in the field, were intubated with a tube in your throat, and brought to the emergency room. We did try and take the tube out in the emergency room because you were now awake. However, your breathing was still shallow, and your oxygen was low. You were kept in the ICU overnight with a tube in your throat. You were successfully extubated this morning. You can now go home. Plan of Treatment: You were supported overnight with a ventilator machine. You have been successfully extubated. You may have a urinary tract infection and you will be sent home on 5 days of levaquin to treat that. Care Goals: 1. Never to do recreational substances that you buy from street drug quiroz. In other words use only medications prescribed by your provider 2. See Dr. Huang in follow-up in the next 1 to 2 weeks Assessment: patient and understand why he was admitted and will proceed with followup No Smoking: If you smoke, Please STOP! Call for help.
[2019-02-06 15:44] VITALS: BP 152/84
--- NOTE | 2019-02-06 18:47 | DISCHARGE SUMMARY ---
"Discharge Summary Admit Date: 02/05/19 Discharge Date: 02/06/19 Discharging Provider: Hilda Justice MD Primary Care Provider: Rosibel Huang MD Code Status: Attempt Resuscitation Condition at Discharge: Good Discharge Disposition: 01 Home, Self Care - DIAGNOSES Discharge Diagnoses with Status of Each Condition: 1. Acute respiratory failure with hypoxia, present on admission, resolved 2. Overdose of medication, resolved 3. UTI, present on admission 4. Hypertension 5. Chronic back pain 6. Drug-seeking behavior 7. Hypothyroid, new, present on admission TSH 8. Lactic acidosis, acute, present on admission and resolved - HPI History of Present Illness: This gentleman is with chronic back pain. He has descriptions of drug-seeking behavior in the EMR. He asked his primary care provider for opiates and she demure. As such she went and bought a pill from someone today for $30. It was a pain pill, he do not know what it was. He drinks a 12 pack a day and was drinking beer while watching a football game. He stepped outside to smoke, and then next thing he knows this is waking up in our emergency room. His found him unresponsive. CPR was started. EMS was called. Pulse was found but he was hypoxic and intubated. In the emergency room he was not ready to be extubated so he stayed intubated overnight. Labs did not show any CO, pneumonia. He did have a UTI on urinalysis. - CONSULTS | PROCEDURES Procedures: 1. Head CT without acute changes. 2. Chest xray without infiltrate 3. CT of chest without pulmonary embolus or aortic dissection 4. Intubation in the field by EMS - HOSPITAL COURSE Hospital Course: He was unable to be extubated in the ER and transferred to ICU with propofol and versed. Overnight he did well. Drug screen with cannabinoids but no opiates (fentanyl is not tested on our SONYA) and alcohol was ~52. In the morning vitals were stable, he was cooperative, alert and following commands. Extubation trial went well. He is noted to have elevated TSH close to 12. He may need to be on synthroid and is asked to followup with his PCP. He was extubated. Was able to eat, ambulate in the room without assist. Warned not to use any substance that was not prescribed by his PCP. For an abnormal urine that apopeared to be UTI he was sent home on levaquin. Follow up with Dr. Huang in the next 1-2 weeks. - ALLERGIES Allergies/Adverse Reactions: Allergies Allergy/AdvReac Type Severity Reaction Status Date / Time Latex, Natural Rubber Allergy Rash Verified 11/02/18 09:58 - MEDICATIONS Home Medications: Ambulatory Orders Medication Instructions Recorded Confirmed Baclofen 10 mg PO DAILY PRN MDD tid 09/03/13 02/06/19 Sertraline [Zoloft] 75 mg PO DAILY 08/08/15 02/06/19 Metoprolol Tartrate 25 mg PO BID 10/03/18 02/06/19 Levofloxacin [Levaquin] 500 mg PO DAILY #5 tablet 02/06/19 - PHYSICAL EXAM AT DISCHARGE General Appearance: positive: No acute distress, Alert ENT: positive: Other (voice is hoarse after extubation) Neck: positive: No JVD Respiratory: positive: Chest non-tender, No respiratory distress. negative: Wheezes, Rales, Rhonchi Cardiovascular: positive: Regular rate & rhythm. negative: Gallop/S4, Friction rub Abdomen: positive: Non-tender, No organomegaly, Nml bowel sounds, No distention Skin: positive: Warm, Dry Extremities: positive: Full ROM, No pedal edema Neurologic/Psychiatric: positive: Oriented x3, CN's nml (2-12), Motor nml - LABS Result Diagrams: 02/06/19 04:45 02/06/19 04:45"
== END 2019-02-06 15:50 | disposition home or self-care (01) ==
LOC: EDUNIT# → ED 15:19 → ICU 17:00
PROVIDERS: ADMIT Specialist; ATTEND Specialist
DX: T50.901A Poisoning by unspecified drugs, medicaments and biological substances, accidental (unintentional), initial encounter (principal); J96.01 Acute respiratory failure with hypoxia; R40.2432 Glasgow coma scale score 3-8, at arrival to emergency department; F10.229 Alcohol dependence with intoxication, unspecified; N39.0 Urinary tract infection, site not specified; G89.4 Chronic pain syndrome; I10 Essential (primary) hypertension; M54.9 Dorsalgia, unspecified; R51 Headache; E03.9 Hypothyroidism, unspecified; E87.2 Acidosis; Y90.2 Blood alcohol level of 40-59 mg/100 ml; G47.33 Obstructive sleep apnea (adult) (pediatric); K62.5 Hemorrhage of anus and rectum; F32.9 Major depressive disorder, single episode, unspecified; F41.0 Panic disorder [episodic paroxysmal anxiety]; F43.10 Post-traumatic stress disorder, unspecified; K21.9 Gastro-esophageal reflux disease without esophagitis; E66.01 Morbid (severe) obesity due to excess calories; F17.210 Nicotine dependence, cigarettes, uncomplicated; Y92.007 Garden or yard of unspecified non-institutional (private) residence as the place of occurrence of the external cause; Z78.1 Physical restraint status; Z76.5 Malingerer [conscious simulation]; Z79.899 Other long term (current) drug therapy; Z68.34 Body mass index [BMI] 34.0-34.9, adult
CPT/HCPCS: 36415; 36556; 36600; 70450; 71045; 71275; 72125; 80053; 81001; 82550; 82803; 83605; 83690; 83735; 84443; 85025; 85610; 87086; 87150; 93005; 96365; 96366; 96367; 96368; 96375; 96376; 99285; 99291; A9270; G0378; J3411; J7120; Q9967; 80306; 80307; 80320; 80329; 81003; 94002; 94770

== ENCOUNTER 2021-06-27 09:58 | Emergency (ER) | payer MEDICARE, MEDICAID ==
--- NOTE | 2021-06-27 11:31 | ED Physician Documentation ---
PD HPI BACK PAIN - Stated complaint Stated Complaint: BACK PAIN - Chief complaint Chief Complaint: Back Pain - History obtained from History obtained from: Patient - History of Present Illness Timing - onset: Today Timing - duration: Hours Timing - details: Abrupt onset, Still present Location: Lower, Right Quality: Pain, Spasm, Aching Associated symptoms: Other (some pain radiating lateral right thigh.). No: Fever, Weakness, Numbness Improves with: No: Rest, Meds (OTC meds at home.) Worsened by: Movement Contributing factors: Twisting. No: Lifting Similar symptoms before: Diagnosis (Prior back surgeries and also disc disease with ongoing back pain at a baseline level much worse today.) Review of Systems Constitutional: denies: Fever, Chills Nose: denies: Rhinorrhea / runny nose, Congestion Throat: denies: Sore throat Cardiac: denies: Chest pain / pressure Respiratory: denies: Cough GI: denies: Abdominal Pain Skin: denies: Rash Musculoskeletal: reports: Back pain Neurologic: denies: Generalized weakness, Focal weakness, Numbness, Near syncope PD PAST MEDICAL HISTORY - Past Medical History Cardiovascular: Hypertension, High cholesterol Respiratory: Sleep apnea Neuro: Head injury, Headaches Endocrine/Autoimmune: None GI: GERD, Hiatal hernia : None HEENT: None Psych: Depression, Anxiety, Panic attacks, Post traumatic stress disorder, Other Musculoskeletal: Osteoarthritis, Chronic back pain, Other Derm: None - Past Surgical History Past Surgical History: Yes General: Appendectomy, Hiatal hernia repair Ortho: Spine surgery - Present Medications Home Medications: Ambulatory Orders Medication Instructions Recorded Confirmed Baclofen 10 mg PO DAILY PRN MDD tid 09/03/13 02/06/19 Sertraline [Zoloft] 75 mg PO DAILY 08/08/15 02/06/19 Metoprolol Tartrate 25 mg PO BID 10/03/18 02/06/19 levoFLOXacin [Levaquin] 500 mg PO DAILY #5 tablet 02/06/19 dexAMETHasone [Decadron] 4 mg PO DAILY #5 tablet 06/27/21 oxyCODONE [Roxicodone] 5 mg PO Q6H PRN #20 tablet 06/27/21 tiZANidine [Zanaflex] 4 mg PO Q8H PRN #25 tablet 06/27/21 - Allergies Allergies/Adverse Reactions: Allergies Allergy/AdvReac Type Severity Reaction Status Date / Time Latex, Natural Rubber Allergy Rash Verified 06/27/21 10:07 - Social History Does the pt smoke?: Yes Smoking Status: Current every day smoker Does the pt drink ETOH?: Yes Does the pt have substance abuse?: Yes - Immunizations Immunizations are current?: Yes Immunizations: TDAP current <10years - POLST Patient has POLST: No PD ED PE NORMAL - Vitals Vital signs reviewed: Yes - General General: Alert and oriented X 3, Well developed/nourished, Other (appears uncomfortable, and with guarding ROM of the low back. ) - Cardiac Cardiac: RRR, No murmur - Respiratory Respiratory: Clear bilaterally - Abdomen Abdomen: Soft, Non tender - Male Male : Deferred - Back Back: No CVA TTP, No spinal TTP, Other (tender right lower lumbar muscle area with focal muscle spasms and trigger point. ) - Derm Derm: Normal color, Warm and dry - Extremities Extremities: No edema, No calf tenderness / cord - Neuro Neuro: Alert and oriented X 3, No motor deficit, No sensory deficit, Normal speech Results - Vitals Vitals: Oxygen O2 Source Room air PD MEDICAL DECISION MAKING - ED course Complexity details: reviewed old records (no MOON.), considered differential (Somewhat chronic back pain with exacerbation today on bending and twisting. No red flags. Will treat with medications. No indication for testing.), d/w patient Departure - Departure Disposition: 01 Home, Self Care Clinical Impression: Acute low back pain Qualifiers: Back pain laterality: unspecified Sciatica presence: with sciatica Sciatica laterality: sciatica of right side Qualified Code(s): M54.41 - Lumbago with sciatica, right side Condition: Stable Record reviewed to determine appropriate education?: Yes Instructions: ED Spasm Back No Trauma Follow-Up: Rosibel Huang MD [Primary Care Provider] - Prescriptions: dexAMETHasone [Decadron] 4 mg PO DAILY #5 tablet oxyCODONE [Roxicodone] 5 mg PO Q6H PRN #20 tablet PRN Reason: Pain tiZANidine [Zanaflex] 4 mg PO Q8H PRN #25 tablet PRN Reason: Spasms Comments: Heat and gentle stretching for the low back massage or chiropractic are okay as well. It is reasonable to treat the exacerbation of your back pain with short-term muscle relaxants and anti-inflammatories and pain medicine. Follow-up with your primary care. It would be up to them as far as longer-term treatment to help with this. Also follow-up with your back specialist. I transmitted to [facility] pharmacy in [place] prescriptions for oxycodone to use 1 every 6 hours if needed for pain along with anti-inflammatory and tizanidine muscle relaxant. I am prescribing a short course of narcotic pain medication for you. These are potentially dangerous and addictive medications that should be used carefully. These medications may constipate you. Take an pxsc-sse-pisrirj stool softener such as docusate twice daily with plenty of water while taking these medications. If you go 24 hours without a bowel movement, take dtyn-xmz-xsnitof MiraLAX, per package instructions. Do not drink or drive while taking these medications. If you received narcotic or sedating medications while in the emergency department do not drive for 24 hours. Store this medication in a safe, secure place and out of reach of children. It is a violation of federal law to give or sell this medication to another person or to use in a manner other than prescribed. The ED will not refill narcotic prescriptions, including prescriptions lost or stolen. You can dispose of unwanted medications at the [facility]'s office or at several pharmacies such as [facility]. Discharge Date/Time: 06/27/21 13:18
[2021-06-27] MEDS: KETOROLAC 30 MG/ML VIAL IM STA (12:33)
[2021-06-27] MEDS: methocarbamoL 500 MG TABLET PO STA (12:33)
[2021-06-27] MEDS: HYDROmorphone 2 MG/ML VIAL IM STA (12:33)
[2021-06-27] MEDS: oxyCODONE 5 MG TABLET PO STA (13:05)
[2021-06-27 13:14] VITALS: BP 163/99
== END 2021-06-27 13:18 | disposition home or self-care (01) ==
LOC: ED 09:58
DX: M54.41 Lumbago with sciatica, right side (principal); I10 Essential (primary) hypertension; F17.200 Nicotine dependence, unspecified, uncomplicated
CPT/HCPCS: 96372; 99283; 99284; A9270; J1170